=== PATIENT | female | born 1990 | race Two or more races ===

== ENCOUNTER 2019-06-12 19:41 | Emergency (ER) | payer SELFPAY ==
[~2019-06-12] VITALS: Ht 154.9 cm; Wt 113.4 kg
[2019-06-12 23:20] VITALS: BP 145/95
== END 2019-06-12 23:19 | disposition home or self-care (01) ==
LOC: ER 19:41 → EDBD 19:41 → ER 23:19
DX: L03.011 Cellulitis of right finger (principal)
CPT/HCPCS: 73140

== ENCOUNTER 2022-12-21 09:42 | Emergency (ER) | payer SELFPAY ==
[~2022-12-21] VITALS: Ht 154.9 cm; Wt 118.2 kg
[2022-12-21 10:43] VITALS: BP 107/92
[2022-12-21] MEDS ORDERED: IBUPROFEN 800 MG TAB PO STA (10:52)
[2022-12-21] MEDS ORDERED: IBUP-1454 PO (11:26)
== END 2022-12-21 11:35 | disposition home or self-care (01) ==
LOC: ER 09:42
DX: S63.502A Unspecified sprain of left wrist, initial encounter (principal); X58.XXXA Exposure to other specified factors, initial encounter; Y93.89 Activity, other specified; Y92.89 Other specified places as the place of occurrence of the external cause; Y99.8 Other external cause status
CPT/HCPCS: 73110